=== PATIENT | female | born 1985 | race African-American/Black ===

== ENCOUNTER 2023-06-10 08:51 | Emergency (ER) | payer OTHER ==
[~2023-06-10] VITALS: Ht 170.2 cm; Wt 100.0 kg
[2023-06-10 08:52] VITALS: BP 121/77; O2SAT 98
[2023-06-10 09:23] LABS: URINE PREG TEST NEGATIVE (NEGATIVE)
[2023-06-10 10:59] LABS: CHLAMYDIA DNA AMPLIFICATION NEGATIVE (NEGATIVE); GC DNA AMPLIFICATION NEGATIVE (NEGATIVE)
[2023-06-10] MEDS ORDERED: BACTRIM 160MG/800MG DS TAB PO ONE (11:35)
[2023-06-10] MEDS ORDERED: SULF1TAB23 PO (11:38)
[2023-06-10] MEDS ORDERED: FLUC10TA PO (11:40)
[2023-06-10] MEDS ORDERED: FLUCONAZOLE 50MG TABLET PO ONE (11:40)
[2023-06-10 11:54] VITALS: TEMP 97.3
== END 2023-06-10 11:55 | disposition home or self-care (01) ==
LOC: M ED 08:51
DX: N39.0 Urinary tract infection, site not specified (principal); B37.31 Acute candidiasis of vulva and vagina

== ENCOUNTER → 2024-10-31 | Outpatient (REF) | payer OTHER ==
[~2024-10-31] MED LIST: FLUC10TA PO; SULF1TAB23 PO
[2024-10-31 12:45] LABS: BASO % 0.2 % (0.0-1.0); EOS # 0.1 10^3/uL (0.0-0.5); EOS % 1.3 % (0.0-3.0); HEMATOCRIT 39.5 % (36.0-47.0); HEMOGLOBIN 13.1 g/dl (12.0-15.5); LYMPH # 2.1 10^3/uL (1.5-5.0); LYMPH % 45.3 % (24.0-44.0); MEAN CORPUSCULAR HEMOGLOBIN 31.2 pg (27.0-33.0); MEAN CORPUSCULAR HGB CONC 33.2 g/dl (32.0-36.5); MONO # 0.6 10^3/uL (0.0-0.8); MONO % 12.5 % (2.0-8.0); NEUTROPHILS # 1.9 10^3/uL (1.5-8.5); NEUTROPHILS % 40.7 % (36.0-66.0); PLATELET COUNT, AUTOMATED 249 10^3/uL (150-450); WHITE BLOOD COUNT 4.6 10^3/uL (4.0-10.0)
[2024-10-31 13:14] LABS: LIPASE 36 U/L (12-53)
[2024-10-31 13:16] LABS: ALKALINE PHOSPHATASE 45 U/L (35-104); ALT/SGPT 12 U/L (7.0-40); AST/SGOT 13 U/L (<34); BILIRUBIN,TOTAL 1.2 MG/DL (0.3-1.2); BLOOD UREA NITROGEN 13 MG/DL (9-23); CARBON DIOXIDE LEVEL 28 MMOL/L (20-31); CHLORIDE LEVEL 105 MMOL/L (98-107); CREATININE FOR GFR 0.71 MG/DL (0.55-1.30); GLOMERULAR FILTRATION RATE > 90.0 (>60); GLUCOSE, FASTING 69 MG/DL (60-100); POTASSIUM SERUM 4.2 MMOL/L (3.5-5.1); SODIUM LEVEL 141 MMOL/L (136-145); TOTAL PROTEIN 7.5 G/DL (5.7-8.2)
== END ==
LOC: M WUC 12:17
PROVIDERS: ATTEND Student in an Organized Health Care Education/Training Program
DX: R10.32 Left lower quadrant pain (principal)